=== PATIENT | male | born 1960 | race Caucasian/White ===

== ENCOUNTER → 2016-09-13 | Outpatient (CLI) | payer BC | LOC: MHCPAIN 10:12 | DX: G89.29 Other chronic pain (principal); M96.1 Postlaminectomy syndrome, not elsewhere classified | CPT/HCPCS: G0463 ==

== ENCOUNTER → 2016-11-15 | Outpatient (CLI) | payer BC | LOC: MHCPAIN 10:06 | DX: G89.29 Other chronic pain (principal); M47.27 Other spondylosis with radiculopathy, lumbosacral region; M96.1 Postlaminectomy syndrome, not elsewhere classified | CPT/HCPCS: G0463 ==

== ENCOUNTER → 2016-12-15 | Outpatient (CLI) | payer BC | LOC: MHCPAIN 09:58 | DX: G89.29 Other chronic pain (principal); M47.817 Spondylosis without myelopathy or radiculopathy, lumbosacral region; M53.3 Sacrococcygeal disorders, not elsewhere classified; M96.1 Postlaminectomy syndrome, not elsewhere classified; Z87.891 Personal history of nicotine dependence | CPT/HCPCS: G0463 ==

== ENCOUNTER → 2016-12-24 | Outpatient (CLI) | payer BC | LOC: MHCPAIN 10:20 | DX: G89.29 Other chronic pain (principal); M47.817 Spondylosis without myelopathy or radiculopathy, lumbosacral region; M54.16 Radiculopathy, lumbar region; M53.3 Sacrococcygeal disorders, not elsewhere classified; M96.1 Postlaminectomy syndrome, not elsewhere classified | CPT/HCPCS: G0463 ==

== ENCOUNTER → 2016-12-30 | Outpatient (CLI) | payer BC | LOC: MHCPAIN 09:03 | DX: M47.817 Spondylosis without myelopathy or radiculopathy, lumbosacral region (principal); M48.06 Spinal stenosis, lumbar region ==

== ENCOUNTER → 2017-01-05 | Outpatient (CLI) | payer BC | LOC: MHCPAIN 09:05 | DX: G89.29 Other chronic pain (principal); M47.817 Spondylosis without myelopathy or radiculopathy, lumbosacral region; M54.16 Radiculopathy, lumbar region; M53.3 Sacrococcygeal disorders, not elsewhere classified; M96.1 Postlaminectomy syndrome, not elsewhere classified | CPT/HCPCS: G0463 ==

== ENCOUNTER → 2017-01-06 | Outpatient (CLI) | payer BC | LOC: MHCPAIN 12:13 | DX: M47.817 Spondylosis without myelopathy or radiculopathy, lumbosacral region (principal); M96.1 Postlaminectomy syndrome, not elsewhere classified | CPT/HCPCS: J1100; J2250; J3010 ==

== ENCOUNTER → 2017-01-20 | Outpatient (CLI) | payer BC | LOC: MHCPAIN 07:51 | DX: M47.817 Spondylosis without myelopathy or radiculopathy, lumbosacral region (principal); M41.06 Infantile idiopathic scoliosis, lumbar region | CPT/HCPCS: J1100; J2250; J3010 ==

== ENCOUNTER → 2017-02-21 | Outpatient (CLI) | payer BC | LOC: MHCPAIN 11:45 | DX: G89.29 Other chronic pain (principal); M47.817 Spondylosis without myelopathy or radiculopathy, lumbosacral region; M54.16 Radiculopathy, lumbar region; M53.3 Sacrococcygeal disorders, not elsewhere classified; M96.1 Postlaminectomy syndrome, not elsewhere classified; Z87.891 Personal history of nicotine dependence | CPT/HCPCS: G0463 ==

== ENCOUNTER → 2017-03-22 | Outpatient (CLI) | payer BC | LOC: MHCPAIN 11:13 | DX: M47.27 Other spondylosis with radiculopathy, lumbosacral region (principal); M53.3 Sacrococcygeal disorders, not elsewhere classified; M96.1 Postlaminectomy syndrome, not elsewhere classified; Z87.891 Personal history of nicotine dependence | CPT/HCPCS: G0463 ==

== ENCOUNTER → 2017-04-12 | Outpatient (CLI) | payer BC | LOC: MHCPAIN 10:55 | DX: G89.29 Other chronic pain (principal); M47.27 Other spondylosis with radiculopathy, lumbosacral region; M53.3 Sacrococcygeal disorders, not elsewhere classified; M96.1 Postlaminectomy syndrome, not elsewhere classified; Z87.891 Personal history of nicotine dependence | CPT/HCPCS: G0463 ==

== ENCOUNTER → 2017-05-16 | Outpatient (CLI) | payer BC | LOC: MHCPAIN 11:03 | DX: G89.29 Other chronic pain (principal); M47.27 Other spondylosis with radiculopathy, lumbosacral region; M53.3 Sacrococcygeal disorders, not elsewhere classified; M96.1 Postlaminectomy syndrome, not elsewhere classified; Z87.891 Personal history of nicotine dependence | CPT/HCPCS: G0463 ==

== ENCOUNTER → 2017-07-06 | Outpatient (CLI) | payer BC | LOC: MHCPAIN 10:57 | DX: G89.29 Other chronic pain (principal); M47.817 Spondylosis without myelopathy or radiculopathy, lumbosacral region; M54.16 Radiculopathy, lumbar region; M53.3 Sacrococcygeal disorders, not elsewhere classified; M96.1 Postlaminectomy syndrome, not elsewhere classified | CPT/HCPCS: G0463 ==

== ENCOUNTER → 2017-07-07 | Outpatient (CLI) | payer BC | LOC: MHCPAIN 13:22 | DX: M47.817 Spondylosis without myelopathy or radiculopathy, lumbosacral region (principal); M41.9 Scoliosis, unspecified ==

== ENCOUNTER → 2017-07-22 | Outpatient (CLI) | payer BC | LOC: MHCPAIN 08:22 | DX: G89.29 Other chronic pain (principal); M47.27 Other spondylosis with radiculopathy, lumbosacral region; M53.3 Sacrococcygeal disorders, not elsewhere classified; M96.1 Postlaminectomy syndrome, not elsewhere classified; M47.814 Spondylosis without myelopathy or radiculopathy, thoracic region; M41.9 Scoliosis, unspecified; Z87.891 Personal history of nicotine dependence | CPT/HCPCS: G0463 ==

== ENCOUNTER → 2017-08-17 | Outpatient (CLI) | payer BC | LOC: MHCPAIN 15:54 | DX: G89.29 Other chronic pain (principal); M47.27 Other spondylosis with radiculopathy, lumbosacral region; M53.3 Sacrococcygeal disorders, not elsewhere classified; M96.1 Postlaminectomy syndrome, not elsewhere classified; M47.814 Spondylosis without myelopathy or radiculopathy, thoracic region; Z87.891 Personal history of nicotine dependence | CPT/HCPCS: G0463 ==

== ENCOUNTER → 2017-08-25 | Outpatient (CLI) | payer BC | LOC: MHCPAIN 12:28 | DX: M47.817 Spondylosis without myelopathy or radiculopathy, lumbosacral region (principal); M96.1 Postlaminectomy syndrome, not elsewhere classified | CPT/HCPCS: J1100; J2250; J3010 ==

== ENCOUNTER → 2017-09-07 | Outpatient (CLI) | payer BC | LOC: MHCPAIN 11:58 | DX: M47.817 Spondylosis without myelopathy or radiculopathy, lumbosacral region (principal); M96.1 Postlaminectomy syndrome, not elsewhere classified | CPT/HCPCS: J1100; J2250; J3010 ==

== ENCOUNTER → 2017-09-28 | Outpatient (CLI) | payer BC | LOC: BHSO 09:09 | DX: Z01.818 Encounter for other preprocedural examination (principal) ==

== ENCOUNTER → 2017-10-10 | Outpatient (CLI) | payer BC | LOC: MHCPAIN 09:46 | DX: G89.29 Other chronic pain (principal); M47.27 Other spondylosis with radiculopathy, lumbosacral region; M47.814 Spondylosis without myelopathy or radiculopathy, thoracic region; M53.3 Sacrococcygeal disorders, not elsewhere classified; M96.1 Postlaminectomy syndrome, not elsewhere classified; Z87.891 Personal history of nicotine dependence | CPT/HCPCS: G0463 ==

== ENCOUNTER → 2017-12-05 | Outpatient (CLI) | payer BC | LOC: MHCPAIN 09:03 | DX: G89.29 Other chronic pain (principal); M47.27 Other spondylosis with radiculopathy, lumbosacral region; M47.814 Spondylosis without myelopathy or radiculopathy, thoracic region; M53.3 Sacrococcygeal disorders, not elsewhere classified; M96.1 Postlaminectomy syndrome, not elsewhere classified; Z87.891 Personal history of nicotine dependence | CPT/HCPCS: G0463 ==

== ENCOUNTER → 2018-02-06 | Outpatient (CLI) | payer BC | LOC: MHCPAIN 09:09 | DX: G89.29 Other chronic pain (principal); M47.817 Spondylosis without myelopathy or radiculopathy, lumbosacral region; M54.16 Radiculopathy, lumbar region; M53.3 Sacrococcygeal disorders, not elsewhere classified; M96.1 Postlaminectomy syndrome, not elsewhere classified; M54.2 Cervicalgia | CPT/HCPCS: G0463 ==

== ENCOUNTER 2018-02-08 08:15 | Outpatient (RCR) | payer BC | END 2018-02-08 12:21 | disposition home or self-care (01) | LOC: WSC 08:15 | DX: M54.2 Cervicalgia (principal) ==

== ENCOUNTER → 2018-02-13 | Outpatient (CLI) | payer BC | LOC: MHCPAIN 12:35 | DX: M47.817 Spondylosis without myelopathy or radiculopathy, lumbosacral region (principal); M41.9 Scoliosis, unspecified ==

== ENCOUNTER → 2018-02-13 | Outpatient (CLI) | payer BC | LOC: COL.PAINC 12:52 → MHCPAIN 12:52 | DX: Z53.8 Procedure and treatment not carried out for other reasons (principal) ==

== ENCOUNTER → 2018-03-02 | Outpatient (CLI) | payer BC | LOC: MHCPAIN 08:10 | DX: M54.16 Radiculopathy, lumbar region (principal); M96.1 Postlaminectomy syndrome, not elsewhere classified | CPT/HCPCS: J1100; J2250; J3010 ==

== ENCOUNTER → 2018-03-06 | Outpatient (CLI) | payer BC | LOC: MHCPAIN 09:54 | DX: M54.16 Radiculopathy, lumbar region (principal) | CPT/HCPCS: J1100; J2250; J3010 ==

== ENCOUNTER → 2018-03-10 | Outpatient (CLI) | payer BC | LOC: MHCPAIN 10:33 | DX: G89.29 Other chronic pain (principal); M47.817 Spondylosis without myelopathy or radiculopathy, lumbosacral region; M54.16 Radiculopathy, lumbar region; M53.3 Sacrococcygeal disorders, not elsewhere classified; M96.1 Postlaminectomy syndrome, not elsewhere classified; M47.814 Spondylosis without myelopathy or radiculopathy, thoracic region | CPT/HCPCS: G0463 ==

== ENCOUNTER → 2018-05-08 | Outpatient (CLI) | payer BC | LOC: MHCPAIN 08:59 | DX: G89.29 Other chronic pain (principal); M47.817 Spondylosis without myelopathy or radiculopathy, lumbosacral region; M54.16 Radiculopathy, lumbar region; M53.3 Sacrococcygeal disorders, not elsewhere classified; M96.1 Postlaminectomy syndrome, not elsewhere classified; M47.814 Spondylosis without myelopathy or radiculopathy, thoracic region | CPT/HCPCS: G0463 ==

== ENCOUNTER → 2018-07-17 | Outpatient (CLI) | payer BC | LOC: MHCPAIN 09:49 | DX: G89.29 Other chronic pain (principal); M47.817 Spondylosis without myelopathy or radiculopathy, lumbosacral region; M54.16 Radiculopathy, lumbar region; M53.3 Sacrococcygeal disorders, not elsewhere classified; M96.1 Postlaminectomy syndrome, not elsewhere classified; M47.814 Spondylosis without myelopathy or radiculopathy, thoracic region | CPT/HCPCS: G0463 ==

== ENCOUNTER → 2018-10-09 | Outpatient (CLI) | payer BC | LOC: MHCPAIN 09:24 | DX: G89.29 Other chronic pain (principal); M47.817 Spondylosis without myelopathy or radiculopathy, lumbosacral region; M54.16 Radiculopathy, lumbar region; M53.3 Sacrococcygeal disorders, not elsewhere classified; M96.1 Postlaminectomy syndrome, not elsewhere classified | CPT/HCPCS: G0463 ==

== ENCOUNTER → 2019-01-08 | Outpatient (CLI) | payer BC | LOC: MHCPAIN 09:19 | DX: G89.29 Other chronic pain (principal); M47.817 Spondylosis without myelopathy or radiculopathy, lumbosacral region; M54.16 Radiculopathy, lumbar region; M53.3 Sacrococcygeal disorders, not elsewhere classified; M96.1 Postlaminectomy syndrome, not elsewhere classified; M47.814 Spondylosis without myelopathy or radiculopathy, thoracic region | CPT/HCPCS: G0463 ==

== ENCOUNTER → 2019-04-09 | Outpatient (CLI) | payer BC | LOC: MHCPAIN 09:09 | DX: G89.29 Other chronic pain (principal); M47.817 Spondylosis without myelopathy or radiculopathy, lumbosacral region; M54.16 Radiculopathy, lumbar region; M53.3 Sacrococcygeal disorders, not elsewhere classified; M96.1 Postlaminectomy syndrome, not elsewhere classified; M47.814 Spondylosis without myelopathy or radiculopathy, thoracic region | CPT/HCPCS: G0463 ==

== ENCOUNTER → 2019-07-02 | Outpatient (CLI) | payer BC | LOC: MHCPAIN 09:10 | DX: M47.817 Spondylosis without myelopathy or radiculopathy, lumbosacral region (principal); M54.16 Radiculopathy, lumbar region | CPT/HCPCS: G0463 ==

== ENCOUNTER → 2019-10-01 | Outpatient (CLI) | payer BC | LOC: MHCPAIN 09:18 | DX: M53.3 Sacrococcygeal disorders, not elsewhere classified (principal); M54.17 Radiculopathy, lumbosacral region; M96.1 Postlaminectomy syndrome, not elsewhere classified | CPT/HCPCS: G0463 ==

== ENCOUNTER → 2019-12-31 | Outpatient (CLI) | payer BC | LOC: MHCPAIN 09:08 | DX: M54.5 Low back pain (principal); M53.3 Sacrococcygeal disorders, not elsewhere classified; M54.16 Radiculopathy, lumbar region; G89.29 Other chronic pain | CPT/HCPCS: G0463 ==

== ENCOUNTER → 2020-04-01 | Outpatient (CLI) | payer BC | LOC: MHCPAIN 08:56 | DX: M47.817 Spondylosis without myelopathy or radiculopathy, lumbosacral region (principal); M54.5 Low back pain; M96.1 Postlaminectomy syndrome, not elsewhere classified; G89.29 Other chronic pain; M54.16 Radiculopathy, lumbar region; M47.814 Spondylosis without myelopathy or radiculopathy, thoracic region | CPT/HCPCS: G0463 ==

== ENCOUNTER → 2020-05-15 | Outpatient (CLI) | payer BC | LOC: ZCOL.LAB 15:47 | DX: Z20.828 Contact with and (suspected) exposure to other viral communicable diseases (principal) ==

== ENCOUNTER → 2020-07-01 | Outpatient (CLI) | payer BC | LOC: MHCPAIN 09:09 | DX: M47.817 Spondylosis without myelopathy or radiculopathy, lumbosacral region (principal); M96.1 Postlaminectomy syndrome, not elsewhere classified; M53.3 Sacrococcygeal disorders, not elsewhere classified; M47.814 Spondylosis without myelopathy or radiculopathy, thoracic region | CPT/HCPCS: G0463 ==

== ENCOUNTER 2020-07-17 08:30 | Outpatient (RCR) | payer BC | END 2020-07-20 | disposition home or self-care (01) | LOC: WSPT | DX: M47.817 Spondylosis without myelopathy or radiculopathy, lumbosacral region (principal); M47.814 Spondylosis without myelopathy or radiculopathy, thoracic region; M96.1 Postlaminectomy syndrome, not elsewhere classified; M53.3 Sacrococcygeal disorders, not elsewhere classified ==

== ENCOUNTER → 2020-08-04 | Outpatient (RCR) | payer BC | END | disposition home or self-care (01) | LOC: WSPT | DX: M47.9 Spondylosis, unspecified (principal) ==

== ENCOUNTER 2020-08-21 11:00 | Outpatient (RCR) | payer BC | END 2020-11-05 | disposition still patient (30) | LOC: WSPT | DX: M53.3 Sacrococcygeal disorders, not elsewhere classified (principal); M96.1 Postlaminectomy syndrome, not elsewhere classified; M47.27 Other spondylosis with radiculopathy, lumbosacral region; M47.24 Other spondylosis with radiculopathy, thoracic region ==

== ENCOUNTER → 2020-09-29 | Outpatient (CLI) | payer BC | LOC: MHCPAIN 09:04 | DX: M79.18 Myalgia, other site (principal); G89.29 Other chronic pain; M47.816 Spondylosis without myelopathy or radiculopathy, lumbar region; M54.5 Low back pain; M96.1 Postlaminectomy syndrome, not elsewhere classified | CPT/HCPCS: G0463 ==

== ENCOUNTER 2020-12-11 08:26 | Outpatient (RCR) | payer BC | END 2020-12-12 09:47 | disposition home or self-care (01) | LOC: WSPT 08:26 | DX: M53.3 Sacrococcygeal disorders, not elsewhere classified (principal); M47.816 Spondylosis without myelopathy or radiculopathy, lumbar region ==

== ENCOUNTER → 2022-04-16 | Outpatient (CLI) | payer BC ==
[~2022-04-16] VITALS: Ht 193 cm; Wt 104.9 kg
[~2022-04-16] MED LIST: BENICAR40 MG PO; CYMBALTA 60MG60 MG PO; DEPO-TESTOS100 MG/ML IM; HYGROTON 2525 MG/TAB PO; K-DUR 10 MEQ T10 MEQ PO; LAMISIL250 M1 PO; LIORESAL 1010 MG/TAB PO; NORVASC 10MG10 MG PO; PEPCID 20MG TAB20 MG PO; PERCOCET 325 MG1 TA3 PO; PREDNISONE20 MG PO; WELLBUTRIN SR150 M1 PO; XTAMPZA ER13.5 MG PO
[2022-04-16 11:45] VITALS: BP 142/93; PULSE 63; TEMP 98.6
[2022-04-16 13:35] VITALS: BP 145/89; PULSE 65
== END ==
LOC: COL.RAD 11:18
DX: M41.9 Scoliosis, unspecified (principal)
CPT/HCPCS: J3301

== ENCOUNTER 2022-07-30 12:45 | Outpatient (RCR) | payer SELFPAY | END 2022-07-31 | disposition home or self-care (01) | LOC: WSPT | DX: M54.9 Dorsalgia, unspecified (principal) ==

== ENCOUNTER 2022-08-16 12:45 | Outpatient (RCR) | payer BC | END 2022-08-17 08:27 | disposition home or self-care (01) | LOC: WSPT 12:45 | DX: M54.50 Low back pain, unspecified (principal) ==

== ENCOUNTER 2023-04-08 09:45 | Outpatient (RCR) | payer BC | END 2023-04-30 | disposition home or self-care (01) | LOC: WSPT | DX: Z98.1 Arthrodesis status (principal) ==

== ENCOUNTER 2024-05-17 08:07 | Outpatient (CLI) | payer BC ==
--- NOTE | 2024-05-14 14:36 | NUR ---
LMOM WITH CALL BACK NUMBER AND INSTRUCTIONS
[2024-05-17] VITALS (7 sets, daily range): BP systolic 130–150; BP diastolic 80–95; PULSE 57–60; TEMP 97.5
[~2024-05-17] VITALS: Ht 193 cm; Wt 108.4 kg
[2024-05-17] MEDS ORDERED: MOBIC15 MG PO (08:24)
[2024-05-17] MEDS ORDERED: MSIR30 MG PO (08:25)
[2024-05-17] MEDS ORDERED: Iohexol 180 - 10 ML VIAL IV ONE (09:38)
--- NOTE | 2024-05-17 10:23 | NUR ---
0900 am--SUGAR MERIDA ASSUMED CARE THIS PATIENT FROM THIS GARMENT FINISHER.
--- NOTE | 2024-05-17 11:01 | NUR ---
Pt brought to [facility] by bed post myelogram. Once pt was transferred to the express unit bed the band-aid on thier back as assessed. The site was clean, dry, and intact. Pt was bedrest for 1 hr. Offered them something to eat and drink, accepted a water. Once the hour recovery was done, discharge education and information discussed with the pt. No questions at the time. The pt exited the unit by wheelchair accompanied by this nurse to wifes car.
== END 2024-05-17 10:56 | disposition home or self-care (01) ==
LOC: COL.RAD 08:07
DX: M48.061 Spinal stenosis, lumbar region without neurogenic claudication (principal); M48.07 Spinal stenosis, lumbosacral region; T84.226A Displacement of internal fixation device of vertebrae, initial encounter; Z98.1 Arthrodesis status
CPT/HCPCS: Q9965